=== PATIENT | female | born 1960 | race Caucasian/White ===

== ENCOUNTER 2016-11-16 23:59 | Emergency (ER) | payer BC ==
--- NOTE | ~2016-11-16 | EKG ---
PATIENT: YAJAIRA SINGH UNIT #: [id number] Ventricular Rate: 72 BPM Atrial Rate: 72 BPM P-R Interval: 146 ms QRS Duration: 82 ms Q-T Interval: 436 ms QTC Calculation(Bezet): 477 ms P Rowlett: 90 degrees Calculated R Rowlett: 20 degrees Calculated T Rowlett: 47 degrees Diagnosis Line: Normal sinus rhythm Diagnosis Line: Normal ECG Diagnosis Line: When compared with ECG of 26-SEP-2011 18:20, Diagnosis Line: No significant change was found Diagnosis Line: Confirmed by MEENU REDDING MD ([id number]) on 11/17/2016 Diagnosis Line: 11:26:55 PM INTERPRETING MD: MILADIS GUIDRY
== END 2016-11-17 00:56 | disposition left against medical advice (07) ==
LOC: CED 23:59
DX: Z53.21 Procedure and treatment not carried out due to patient leaving prior to being seen by health care provider (principal)
CPT/HCPCS: 93005